=== PATIENT | female | born 1970 | race Caucasian/White ===

== ENCOUNTER → 2018-09-16 | Outpatient (CLI) | payer BC ==
[~2018-09-16] MED LIST: ACET-2469 PO; CEFD300C3 PO; DOCU100C37 PO; HYDR-34 PO; IBUP-1773 PO; NITR-65 PO; PHEN-640 PO; SIME80TA16 PO
--- NOTE | 2018-09-19 11:53 | Diagnostic Imaging Report ---
INDICATION: Screening. COMPARISON: 05/01/2014. TECHNIQUE: Bilateral CC and MLO 3D mammography was performed. The current study was also evaluated with a Computer Aided Detection (CAD) system. FINDINGS: There are scattered fibroglandular densities bilaterally. There is a well-circumscribed mass in the axillary region of the right breast seen only on the MLO projection. There is no other dominant mass, spiculated lesion, or suspicious calcification identified. The skin, nipples, and axillae are unremarkable. There are a few benign type calcifications. IMPRESSION: There is a well circumscribed mass in the axillary region of the right breast not appreciated on the prior exam. Further evaluation with spot compression views and ultrasound would be recommended. ACR BI-RADS Category 0: Incomplete. (Needs additional imaging evaluation). Result letter will be mailed to the patient. Note: At least 10% of breast cancer is not imaged by mammography. Dictated by: Dictated on workstation # [id number]
== END ==
LOC: RAD 14:06
PROVIDERS: ATTEND Obstetrics & Gynecology
DX: Z12.31 Encounter for screening mammogram for malignant neoplasm of breast (principal)
CPT/HCPCS: 77067

== ENCOUNTER → 2018-09-30 | Outpatient (CLI) | payer BC ==
--- NOTE | 2018-09-30 16:34 | Diagnostic Imaging Report ---
INDICATION: Right breast density. Patient presents for additional views. COMPARISON: Correlation is made with recent screening study from 09/16/2018 and 05/01/2014. EXAMINATION: Unilateral right 2D and 3D diagnostic mammography was performed including conventional 90 degree lateral view as well as spot compression MLO and exaggerated CC. The current study was also evaluated with a Computer Aided Detection (CAD) system. FINDINGS: Scattered fibroglandular densities are noted. Circumscribed nodule in upper outer right breast, 14 cm from the nipple, is noted. This appears to have been present on prior mammogram and most likely represents a lymph node. No suspicious mass or malignant appearing microcalcifications are seen. IMPRESSION: Circumscribed density of upper outer right breast at posterior depth, likely intramammary lymph node. Further evaluation with ultrasound is recommended and will be performed today. ACR BI-RADS Category 0: Incomplete. (Needs additional imaging evaluation). Result letter will be mailed to the patient. Note: At least 10% of breast cancer is not imaged by mammography. Dictated on workstation # [id number]
--- NOTE | 2018-09-30 16:36 | Diagnostic Imaging Report ---
INDICATION: Right breast density. Study was performed for further evaluation. COMPARISON: Correlation made with diagnostic mammogram from earlier the same day and screening mammogram from 09/16/2018 and 05/14/2014. FINDINGS: Sonographic interrogation of the upper outer right breast was performed. No sonographic abnormality is seen. No solid or cystic mass is detected. IMPRESSION: No sonographic abnormality is seen. Nodule noted mammographically is circumscribed and has benign features and appears to have been present since 2013, suggestive of an intramammary lymph node. Patient may return to routine annual screening mammography. ACR BI-RADS Category 2: Benign findings. Result letter will be mailed to the patient. Note: At least 10% of breast cancer is not imaged by mammography. Dictated on workstation # [id number]
== END ==
LOC: RAD 14:08
PROVIDERS: ATTEND Obstetrics & Gynecology
DX: N63.10 Unspecified lump in the right breast, unspecified quadrant (principal)

== ENCOUNTER → 2020-08-02 | Outpatient (CLI) | payer BC ==
[~2020-08-02] MED LIST changes: -ACET-2469 PO; +ACET-3075 PO
--- NOTE | 2020-08-02 17:56 | Diagnostic Imaging Report ---
INDICATION: Routine screening. COMPARISON: Prior mammograms from 09/16/2018 and 05/01/2014. EXAMINATION: 2D and 3D bilateral screening mammography was performed with CAD. 3D tomographic images were obtained and reviewed. The current study was also evaluated with a Computer Aided Detection (CAD) system. FINDINGS: Scattered fibroglandular densities are identified, bilaterally. Circumscribed nodule in the upper posterior right breast is stable. No spiculated mass or malignant appearing microcalcifications are seen. Axillae are unremarkable. IMPRESSION: No mammographic features suspicious for malignancy are identified. BI-RADS Category 2 Dictated by: Dictated on workstation # [id number]
== END ==
LOC: RAD 14:45
PROVIDERS: ATTEND Obstetrics & Gynecology
DX: Z12.31 Encounter for screening mammogram for malignant neoplasm of breast (principal)
CPT/HCPCS: 77063; 77067

== ENCOUNTER → 2021-12-05 | Outpatient (CLI) | payer BC ==
--- NOTE | 2021-12-05 14:02 | Diagnostic Imaging Report ---
Indication: Routine screening. Comparison is made with prior mammograms 08/02/2020 and 09/16/2018. 2-D and 3-D bilateral screening mammography was performed with CAD. Scattered fibroglandular densities are identified bilaterally. Benign nodule upper outer right breast is stable. No new mass or malignant-appearing microcalcifications are seen. Axillae are unremarkable. IMPRESSION: BI-RADS Category 2 No mammographic features suspicious for malignancy are identified. ACR BI-RADS Category 2: Benign findings. Result letter will be mailed to the patient. Note: At least 10% of breast cancer is not imaged by mammography. Dictated by: Dictated on workstation # [id number]
== END ==
LOC: RAD 09:36
PROVIDERS: ATTEND Obstetrics & Gynecology
DX: Z12.31 Encounter for screening mammogram for malignant neoplasm of breast (principal)
CPT/HCPCS: 77063; 77067